=== PATIENT | female | born 1955 | race Caucasian/White ===

== ENCOUNTER → 2021-01-02 | Outpatient (CLI) | payer MEDICARE | LOC: KOH-I 11:08 | DX: M13.862 Other specified arthritis, left knee (principal); M79.605 Pain in left leg; R60.0 Localized edema | CPT/HCPCS: 73721 ==

== ENCOUNTER → 2021-02-20 | Outpatient (CLI) | payer MEDICARE ==
[2021-02-20 11:21] LABS: HEMOGLOBIN 12.2 gm/dl (12.3-15.3); RED BLOOD COUNT 3.92 M/UL (4.00-5.10); WHITE BLOOD COUNT 5.6 K/UL (4.5-11.0)
== END ==
LOC: LAB 10:37
PROVIDERS: Emergency Medicine
DX: M51.36 Other intervertebral disc degeneration, lumbar region (principal); M13.862 Other specified arthritis, left knee; E03.8 Other specified hypothyroidism; M79.605 Pain in left leg
CPT/HCPCS: 36415; 80053; 80061; 83704; 84443; 84550; 85025

== ENCOUNTER → 2021-03-09 | Outpatient (CLI) | payer MEDICARE | LOC: MAMO 03-01 11:30 | DX: Z12.31 Encounter for screening mammogram for malignant neoplasm of breast (principal) | CPT/HCPCS: 77063; 77067 ==

== ENCOUNTER → 2021-07-02 | Outpatient (CLI) | payer MEDICARE ==
[2021-07-02 09:51] LABS: HEMOGLOBIN 11.5 gm/dl (12.3-15.3); RED BLOOD COUNT 3.84 M/UL (4.00-5.10); WHITE BLOOD COUNT 6.7 K/UL (4.5-11.0)
[2021-07-04 11:16] LABS: CHOLESTEROL, TOTAL 224 mg/dL (100-199); HDL SIZE 9.6 nm (>=9.2); HDL-C 69 mg/dL (>39); HDL-P (TOTAL) 45.6 umol/L (>=30.5); LARGE VLDL-P 9.2 nmol/L (<=2.7); LDL SIZE 21.7 nm (>20.5); LDL SIZE 21.7 nm (>=20.8); LDL-C 121 mg/dL (0-99); LDL-P 1457 nmol/L (<1000); LP-IR SCORE 49 (<=45); SMALL LDL-P 575 nmol/L (<=527); TRIGLYCERIDES 198 mg/dL (0-149); VLDL SIZE 56.4 nm (<=46.6)
== END ==
LOC: LAB 09:20
PROVIDERS: Emergency Medicine
DX: M13.862 Other specified arthritis, left knee (principal); F41.1 Generalized anxiety disorder; F33.1 Major depressive disorder, recurrent, moderate
CPT/HCPCS: 36415; 80053; 80061; 83704; 84443; 85025

== ENCOUNTER → 2021-09-17 | Outpatient (CLI) | payer MEDICARE ==
[2021-09-17 11:15] LABS: BUN/CREATININE RATIO 23 (0-10)
== END ==
LOC: LAB 10:17
PROVIDERS: Emergency Medicine
DX: E03.8 Other specified hypothyroidism (principal); R53.83 Other fatigue; I10 Essential (primary) hypertension
CPT/HCPCS: 36415; 80053; 84443

== ENCOUNTER → 2021-09-25 | Outpatient (CLI) | payer MEDICARE | LOC: KOH-I 09:59 | DX: M54.2 Cervicalgia (principal); M47.812 Spondylosis without myelopathy or radiculopathy, cervical region | CPT/HCPCS: 72040 ==

== ENCOUNTER → 2021-10-01 | Outpatient (CLI) | payer MEDICARE ==
[2021-10-01 11:18] LABS: BUN/CREATININE RATIO 23 (0-10)
== END ==
LOC: LAB 10:29
PROVIDERS: Emergency Medicine
DX: E03.8 Other specified hypothyroidism (principal); R53.83 Other fatigue; I10 Essential (primary) hypertension
CPT/HCPCS: 36415; 80053; 84443

== ENCOUNTER → 2021-10-04 | Outpatient (CLI) | payer MEDICARE | LOC: KOH-I 08:00 | DX: M50.321 Other cervical disc degeneration at C4-C5 level (principal); R51.9 Headache, unspecified; W01.190A Fall on same level from slipping, tripping and stumbling with subsequent striking against furniture, initial encounter | CPT/HCPCS: 70450; 72125 ==

== ENCOUNTER 2021-11-29 23:38 | Emergency (ER) | payer MEDICARE ==
[2021-11-30 01:33] LABS: HEMOGLOBIN 10.7 gm/dl (12.3-15.3); RED BLOOD COUNT 3.63 M/UL (4.00-5.10); WHITE BLOOD COUNT 8.4 K/UL (4.5-11.0)
[2021-11-30] MEDS ORDERED: ENDOCET 5-3251 EACH PO (03:29)
== END 2021-11-30 04:50 | disposition home or self-care (01) ==
LOC: ER1 23:38
PROVIDERS: Emergency Medicine
DX: U07.1 COVID-19 (principal); R55 Syncope and collapse; S42.031A Displaced fracture of lateral end of right clavicle, initial encounter for closed fracture; S01.81XA Laceration without foreign body of other part of head, initial encounter; W19.XXXA Unspecified fall, initial encounter
CPT/HCPCS: 12013; 70450; 71045; 73030; 80053; 82550; 82553; 83880; 84484; 85025; 90471; 90715; 93005; 96374; 96375; 99284; J2270; J2405

== ENCOUNTER 2021-12-25 18:08 | Emergency (ER) | payer MEDICARE ==
[~2021-12-25 18:08] MED LIST: ENDOCET 5-3251 EACH PO
[2021-12-25 20:06] LABS: RED BLOOD COUNT 4.64 M/UL (4.00-5.10); WHITE BLOOD COUNT 8.2 K/UL (4.5-11.0)
[2021-12-25 20:36] LABS: BUN/CREATININE RATIO 26 (0-10)
== END 2021-12-26 01:42 | disposition home or self-care (01) ==
LOC: ER1 18:08
PROVIDERS: Emergency Medicine
DX: K44.9 Diaphragmatic hernia without obstruction or gangrene (principal); E87.6 Hypokalemia; R13.10 Dysphagia, unspecified; I10 Essential (primary) hypertension; Z90.710 Acquired absence of both cervix and uterus; Z90.49 Acquired absence of other specified parts of digestive tract
CPT/HCPCS: 71260; 80053; 81001; 83690; 84439; 84443; 85025; 85652; 86140; 87086; 93005; 99284; Q9967

== ENCOUNTER → 2022-01-14 | Outpatient (CLI) | payer MEDICARE ==
[2022-01-14 10:25] LABS: BUN/CREATININE RATIO 19 (0-10)
== END ==
LOC: LAB 09:30
PROVIDERS: Emergency Medicine
DX: I10 Essential (primary) hypertension (principal); E03.8 Other specified hypothyroidism; R55 Syncope and collapse; U09.9 Post COVID-19 condition, unspecified
CPT/HCPCS: 36415; 80053; 84443